=== PATIENT | male | born 1995 | race African-American/Black ===

== ENCOUNTER 2024-04-16 18:25 | Emergency (ER) | payer SELFPAY | END 2024-04-16 21:12 | disposition home or self-care (01) | LOC: CSHERS 18:25 | DX: E86.0 Dehydration (principal); R55 Syncope and collapse; X32.XXXA Exposure to sunlight, initial encounter; Y93.01 Activity, walking, marching and hiking; Y92.410 Unspecified street and highway as the place of occurrence of the external cause | CPT/HCPCS: 99284 ==